=== PATIENT | male | born 1990 | race Hispanic/Latino ===

== ENCOUNTER 2019-06-03 09:00 | Inpatient (IN) ==
[2019-06-03] MEDS ORDERED: KEFZOL 1 GM/D5W 1 GM/50 ML IVPB ONE (09:18)
[2019-06-03] MEDS ORDERED: PEPCID ONE (09:18)
[2019-06-03] MEDS ORDERED: LR 1,000 ML ONE ×2 (09:18→09:58)
[2019-06-03] MEDS ORDERED: REGLAN ONE (09:18)
[2019-06-03] MEDS ORDERED: SODIUM CHLORIDE 0.9% ONE (09:58)
[2019-06-03] MEDS ORDERED: SENSORCAINE 0.5%-EPI 1:200,000 ONE (09:58)
[2019-06-03] MEDS ORDERED: DIPRIVAN 1% ONE (10:17)
[2019-06-03] MEDS ORDERED: VERSED ONE (10:17)
[2019-06-03] MEDS ORDERED: XYLOCAINE-MPF 2% ONE (10:18)
[2019-06-03] MEDS ORDERED: QUELICIN (DOSE) ONE (10:18)
[2019-06-03] MEDS ORDERED: TORADOL ONE (10:18)
[2019-06-03] MEDS ORDERED: DECADRON ONE (10:18)
[2019-06-03] MEDS ORDERED: ZOFRAN ONE (10:18)
[2019-06-03] MEDS ORDERED: ZEMURON ONE (10:22)
[2019-06-03] MEDS ORDERED: GLUCAGON ONE (11:08)
[2019-06-03] MEDS ORDERED: NEOSTIGMINE ONE (11:30)
[2019-06-03] MEDS ORDERED: ROBINUL ONE (11:31)
--- NOTE | 2019-06-03 12:02 | Diag Imaging Result Doc PS360 ---
OPERATIVE CHOLANGIOGRAM - 06/03/2019 INDICATION: GALLBLADDER DX TECHNIQUE: The exam was performed by the patient's surgeon. Total fluoroscopy time was one minute. Four images were obtained. COMPARISON: None FINDINGS: Contrast was infused via the cystic duct. There is relatively severe diffuse dilation of the biliary collecting system and common bile duct. There is a small round filling defect at the distalmost common bile duct measuring probably about 5-6 mm. This suggests an impacted common bile duct stone. IMPRESSION: Obstructing distal common bile duct stone with diffuse dilation of the biliary collecting system. Electronically signed by Herber Elizalde 06/03/2019 12:00 PM
[2019-06-03] MEDS ORDERED: ZOFRAN IV PRN (12:41)
[2019-06-03] MEDS: LR 1,000 ML IV SCH (15:55)
[2019-06-03] MEDS: PERIDEX MT SCH (20:20)
[2019-06-04] MEDS: LR 1,000 ML IV SCH ×3 (00:05→19:49)
[2019-06-04 07:04] LABS: AGAP 11; ALB/GLOB RATIO 1.4; ALBUMIN 3.8 g/dL (3.5-5.0); ALKALINE PHOSPHATASE 308 U/L (32-122); BUN 10 mg/dL (8-22); CALCIUM 8.6 mg/dL (8.8-10.2); CHLORIDE 104 mmol/L (98-107); COSMO 280; CREATININE 0.7 mg/dL (0.7-1.2); ESTIMATED GFR > 60; GLUCOSE 94 mg/dL (70-104); GOT 158 U/L (10-34); GPT 559 U/L (10-44); POTASSIUM 3.7 mmol/L (3.5-5.1); SODIUM 141 mmol/L (136-145); TCO2 26 mmol/L (25-35); TOTAL BILIRUBIN 1.52 mg/dL (0.20-1.00); TOTAL PROTEIN 6.5 g/dL (6.3-8.3)
[2019-06-04] MEDS: PERIDEX MT SCH ×2 (09:20→21:09)
[2019-06-04] MEDS: NORCO-7.5 PO PRN ×2 (09:41→21:08)
--- NOTE | 2019-06-04 09:49 | GENERAL SURGERY PROGRESS NOTE ---
DATE: 06/04/2019 SUBJECTIVE: He is doing well. OBJECTIVE: The abdomen is soft, no vomiting overnight. No fevers. No tachycardia. His ANAID drain is serosanguineous. LABORATORY DATA: I reviewed his LFTs. His bilirubin remains elevated 1.52. AST, ALT, and alkaline phosphatase are elevated. His creatinine is normal. ASSESSMENT/PLAN: 28-year-old gentleman status post cholecystectomy noted to have choledocholithiasis with distal bile duct obstruction on cholangiogram. He is scheduled for ERCP today. We will keep him n.p.o. and advance diet postoperatively. Otherwise, we will keep his drain given the distal obstruction for now. cc: Danae Wheatley MD
--- NOTE | 2019-06-04 10:03 | OPERATIVE NOTE ---
PROCEDURE DATE: 06/03/2019 PREOPERATIVE DIAGNOSIS: Cholecystitis. POSTOPERATIVE DIAGNOSES: 1. Cholecystitis. 2. Choledocholithiasis. PROCEDURE PERFORMED: Laparoscopic cholecystectomy with cholangiogram. ESTIMATED BLOOD LOSS: 20 mL. SPECIMENS: Gallbladder. ANESTHESIA: General. INDICATIONS: A 28-year-old gentleman who had severe onset of abdominal pain approximately 1 week ago. He went to the ER and showed a dilated gallbladder. His pain has subsequently improved. FINDINGS: 1. There was a thickened rind and inflammation of the gallbladder with thick bile with innumerable very small stones. The cystic duct had impacted stones throughout. 2. Interpretation of intraoperative cholangiogram shows flow of contrast through a moderate length dilated cystic duct into a dilated common bile duct with a filling defect consistent with a stone impacted at the ampulla. Intrahepatic radicals due to the distal obstruction were dilated, but otherwise appeared normal. The distal pancreatic duct appeared normal as well. OPERATIVE NOTE: The risks, benefits, and alternatives were discussed with the patient who consented to the procedure. He was seen preoperatively. Surgical site was confirmed. He was taken to the operating room and placed in the supine position. General anesthesia was induced. His abdomen was prepped chlorhexidine solution. Preincision antibiotics were administered. His abdomen is draped. A curvilinear infraumbilical incision was made and carried down to the fascia. The fascia was incised, and the abdomen was entered in open controlled fashion. A 10 mm Tatum trocar was placed. We then placed 3 additional trocars of 5 mm along the costal margin. The gallbladder was grasped and retracted cephalad. Starting laterally and progressing medially we began dissecting out. There was a very large inflamed Calot node with an artery behind it that was encircled and clipped. This allowed us to unfurl the infundibulum cystic junction that was furled onto itself, it from the common bile duct, which was easily visualized. We established the critical view. The triangle with liver visualized through this and confirmed our anatomy. Clip was then placed on the gallbladder side and a ductotomy was made. There was high-pressure bile with numerous stones impacted within the distal cystic duct that we milked free. We then did flush this as well to help facilitate further removal of this debris, and a cholangiogram was performed. We noted a distal obstruction on the cholangiogram. As such, we reestablished exposure, triply clipped the duct with good closure, and placed a Fred drain in the gallbladder fossa after dividing the cystic duct and removing the gallbladder from the liver bed. Hemostasis was noted. There was no bile leakage. We evacuated any stones that were spilled. The gallbladder was removed intact, but there was some spillage of bile and stones from emptying the cystic duct. Abdomen was deflated. We had to make the incision larger to get the gallbladder out and closed the fascia with interrupted 0 Vicryl sutures. Skin was closed with 4-0 Monocryl. Dermabond was applied. Drains placed to suction. He was awoken and transferred to recovery. We will admit him for ERCP. I have consulted Dr. Christopher. cc: Danae Wheatley MD
--- NOTE | 2019-06-04 11:13 | GASTROENTEROLOGY CONSULTATION ---
DATE: 06/04/2019 REASON FOR CONSULTATION: Choledocholithiasis. HISTORY OF PRESENT ILLNESS: Mr. Ki Romero is a 28-year-old gentleman with no significant past medical history who presented on 06/03/2019 with acute cholecystitis status post laparoscopic cholecystectomy on 06/03/2019 and found to have intrahepatic distal common bile duct stone. The patient reports that he developed right upper quadrant pain that became progressively worse over the last week with no other associated symptoms. He does say that he developed some nausea and vomiting yesterday and his pain became severe, which prompted him being taken back to the OR. He denies any fevers, weight loss, hematemesis, rectal bleeding, change in bowel habits, history of similar symptoms in the past. His pain was not aggravated with p.o. intake. REVIEW OF SYSTEMS: A 12-point review of systems is negative. FAMILY HISTORY: No family history of GI malignancies. PAST MEDICAL HISTORY: None. PAST SURGICAL HISTORY: He is postoperative day 1 from laparoscopic cholecystectomy. MEDICATIONS: None. SOCIAL HISTORY: No smoking, alcohol or drug use. ALLERGIES: None. PHYSICAL EXAMINATION: Vital Signs: Temperature is 98.3, pulse 61, respiratory rate 14, blood pressure 124/85, O2 saturation 100% on room air. General: Patient is awake, alert, oriented, no acute distress. HEENT: Sclerae anicteric. Moist mucous membranes. Extraocular motor intact. Neck: Supple. No JVD or lymphadenopathy. Cardiac: Regular rate and rhythm. No murmurs. Lungs: Clear to auscultation bilaterally. No wheezing. Abdomen: There is a right upper quadrant Jaron-Leigh drain with serosanguineous fluid in the bulb. His trocar incisions are clean, dry, and intact. His abdomen is nondistended. Bowel sounds are present. No rebound or guarding. Mild tenderness throughout. Extremities: No clubbing, cyanosis, or edema. Neurologic: Nonfocal. LABS: CBC from 05/27/2019 was normal. CMP from this morning shows sodium 141, potassium 2.7, chloride 104, bicarb 26, BUN of 10, creatinine 0.7, glucose of 94, total bilirubin of 1.5, AST of 158, ALT of 559, alkaline phosphatase is 308, total bilirubin 6.5, albumin 3.8. Lipase on 05/27/2019 was 37. Of note LFTs on 05/27/2019 showed a total bilirubin of 1.2, AST of 206, ALT of 144, alkaline phosphatase of 227. CT of the abdomen and pelvis on 05/27/2019 showed cholecystitis. Of note, patient was seen in the emergency room on 05/27/2019 with these symptoms and the patient was started on antibiotics with ciprofloxacin 10 mg b.i.d. for acute cholecystitis and was instructed to follow up with Surgery, with Dr. Tapia as an outpatient in next day with the ER warning signs. An intraoperative cholangiogram yesterday showed obstructing distal common bile duct measuring 5 to 6 mm with diffuse dilation of the biliary collecting system. The gallbladder lymph node pathology pending. ASSESSMENT/PLAN: Mr. Ki Romero is a 28-year-old gentleman with admission for acute cholecystitis status post laparoscopic cholecystectomy with intraoperative cholangiograms showing choledocholithiasis. His LFTs this morning show increased mixed pattern liver injury that is primarily hepatocellular. His alkaline phosphatase is increased from 05/27/2019. This can be consistent with acute cholecystitis and choledocholithiasis. He is currently NPO. He is on medications for pain control, lactated Ringer's, antiemetics. The patient will need ERCP for his choledocholithiasis, which will be done by Dr. Valdivia. The risks and benefits of the procedure were communicated to the patient. All questions were answered at bedside. Family at bedside as well. Thank you for this consult. We will follow with you. Please call with any questions or concerns. cc: Danae Wheatley MD
[2019-06-04] MEDS ORDERED: DIPRIVAN 1% ONE (11:18)
[2019-06-04] MEDS ORDERED: ROBINUL ONE (11:18)
[2019-06-04] MEDS ORDERED: XYLOCAINE-MPF 2% ONE (11:18)
[2019-06-04] MEDS ORDERED: VERSED ONE (11:20)
[2019-06-04] MEDS ORDERED: FENTANYL ONE (11:20)
--- NOTE | 2019-06-04 12:46 | Diag Imaging Result Doc PS360 ---
EXAM: ERCP-BILIARY AND PANCREATIC INDICATION: CBD STONES TECHNIQUE: COMPARISON: Intraoperative cholangiogram during cholecystectomy dated 06/03/2019 FINDINGS: Three spot fluoroscopic images were provided, which were performed during ERCP by Dr. Valdivia. The common bile duct is dilated like the prior study the filling defect seen in the distal common bile duct on the previous study that is assumed to represent a stone is not identified on the final image indicating interval extraction. No focal ductal stricture is identified. IMPRESSION: As above. Please correlate with live fluoroscopic imaging. Electronically signed by Kenney Groves 06/04/2019 12:43 PM
[2019-06-05] MEDS: PERIDEX MT SCH (08:49)
[2019-06-05 12:16] VITALS: BP 118/68
[2019-06-05] MEDS: LR 1,000 ML IV SCH (13:04)
[2019-06-05] MEDS: NORCO-7.5 PO PRN ×2 (13:04→14:58)
--- NOTE | 2019-06-05 14:27 | GASTROENTEROLOGY PROGRESS NOTE ---
DATE: 06/05/2019 SUBJECTIVE: Mr. Romero 28 year old male sitting in bed having breakfast. Family is at the bedside. He denied any nausea, vomiting or any bowel movements today. His abdomen is slightly tender OBJECTIVE: Vital Signs: Temperature is 98.1, pulse 60, respirations 16, blood pressure 112/64, and oxygen saturation 99% on room air. His weight is 156 pounds. BMI is 28.3 kg/m2. General: He is alert and oriented times 3 and in no acute distress. HEENT: Pale conjunctivae. No icterus. PERRL. Neck: Supple. Lungs: Clear to auscultation in the anterior and posterior napier. Cardiovascular: Regular rate and rhythm. No murmurs, rubs, or gallops heard on auscultation. Abdomen: Mildly distended, tender, and soft. He has a ANAID drain draining serosanguineous fluid, minimal amount. Trocar incision dry and intact. Extremities: No clubbing, cyanosis, or edema. Pedal pulses are 2+ and present bilaterally. Neurological: Alert and oriented times 3. LABS: Sodium is 141, potassium 3.7, chloride 104, carbon dioxide 23, anion gap 11, BUN 10, creatinine 0.7, glucose 94, calcium 8.6, total bilirubin 1.54, AST 158, ALT 559, alkaline phos 308, and albumin 3.8. Cholangiogram report showed obstructing distal common bile duct stone with diffuse dilation of the biliary collecting system. ERCP was done but no stent has been placed. IMPRESSION AND PLAN: Cholecystitis S/P laparoscopic cholecystectomy with intraoperative cholangiogram Choledocholithiasis S/P ERCP Elevated liver function tests. PLAN: The patient denies any nausea or vomiting but has mild abdominal tenderness. He is receiving hydrocodone for his pain and Zofran 4 mg for nausea as needed. We will continue to monitor patient's LFT's and follow the plan of care per the surgeon. This plan was discussed with Dr. Watson. Please call us for any further questions or concerns. Dictated by SUSY Tanner for Yamil Watson MD cc: MD Danae Gallo MD I have seen and examined the patient myself and I agree with the above plan of care. Discussed the above plan of care with the patient and all questions were answered. Please call us with any further questions. MTDD
--- NOTE | 2019-06-06 01:38 | GENERAL SURGERY PROGRESS NOTE ---
DATE: 06/05/2019 SUBJECTIVE: Feels much better. ANAID drain serosanguineous. Abdomen is soft. Some incisional pain but no pain consistent with pancreatitis. ASSESSMENT AND PLAN: A 28-year-old gentleman admitted for cholecystectomy and found to have an obstructing bile stone status post ERCP. It is draining serosanguineous. We will take it on Sunday. Surgically, he is tolerating a diet and can go home and follow up with me on Sunday. cc: Danae Wheatley MD
--- NOTE | 2019-06-24 13:21 | OPERATIVE NOTE ---
PROCEDURE DATE: 06/05/2019 PROCEDURE: 1. Endoscopic retrograde cholangiopancreatography. 2. Sphincterotomy and stone extraction. PREOPERATIVE DIAGNOSIS: Rule out common bile duct stone. POSTOPERATIVE DIAGNOSIS: Dilated common bile duct. No evidence of stone, likely passed. A sphincterotomy was done. DESCRIPTION OF PROCEDURE: After informed consent and adequate intravenous sedation, the scope introduced the esophagus, stomach, and duodenum. The ampulla appears wide open as if he might have passed the stone. Cholangiogram still shows dilated duct and narrowing in intrapapillary portion. Papillotomy was done. The scope was withdrawn. The patient tolerated the procedure well without any immediate complications. cc: MD Danae Coto MD
== END 2019-06-05 15:02 | disposition home or self-care (01) | DRG 419 ==
LOC: 4N 09:00 → OR 09:00 → OBSVTOIN 11:19
PROVIDERS: ADMIT Surgery; ATTEND Surgery
PROC: EN.ERCP (2019-06-04 11:55)